=== PATIENT | female | born 1980 | race Caucasian/White ===

== ENCOUNTER 2019-05-07 20:59 | Emergency (ER) | payer OTHER ==
[2019-05-07 21:23] VITALS: BP 117/72
--- NOTE | 2019-05-07 21:37 | UC ---
Throat Pain/Nasal Alonso HPI - HPI Summary HPI Summary: 38-year-old woman comes in with a chief complaint of sore throat and headache for 2 days. Both her and her [id number] daughter have similar symptoms. Patient has not had any fevers. She is 24 weeks and has been taking acetaminophen which does help with symptoms some. She just found out that several acquaintances have been diagnosed with strep throat and she is concerned about the possibility. - History of Current Complaint Chief Complaint: UCRespiratory Stated Complaint: SORE THROAT Time Seen by Provider: 05/07/19 21:02 Hx Last Menstrual Period: 24 WEEKS Pain Intensity: 3 - Allergies/Home Medications Allergies/Adverse Reactions: Allergies Allergy/AdvReac Type Severity Reaction Status Date / Time erythromycin base Allergy Nausea And Verified 05/07/19 21:20 Vomiting morphine Allergy Itching Verified 05/07/19 21:20 Sulfa (Sulfonamide Allergy Itching Verified 05/07/19 21:20 Antibiotics) Home Medications: Home Medications Acetaminophen [Tylenol Extra Strength] 500 mg PO Q12HR PRN 05/07/19 [History Confirmed 05/07/19] Vitamin TAB* 1 tab PO DAILY 05/07/19 [History Confirmed 05/07/19] PMH/Surg Hx/FS Hx/Imm Hx Previously Healthy: Yes - Surgical History Surgical History: Yes Surgery Procedure, Year, and Place: X 2. APPY - Family History Known Family History: Positive: Non-Contributory - Social History Alcohol Use: None Substance Use Type: None Smoking Status (MU): Never Smoked Tobacco Review of Systems All Other Systems Reviewed And Are Negative: Yes Constitutional: Positive: Other - SEE HPI Skin: Positive: Negative Eyes: Positive: Negative ENT: Positive: Sore Throat Respiratory: Positive: Negative Cardiovascular: Positive: Negative Gastrointestinal: Positive: Negative Motor: Positive: Negative Neurovascular: Positive: Negative Musculoskeletal: Positive: Negative Neurological: Positive: Headache Psychological: Positive: Negative Is Patient Immunocompromised?: No Physical Exam Triage Information Reviewed: Yes Appearance: Well-Appearing, No Pain Distress, Well-Nourished Vital Signs: Initial Vital Signs Temp 98.6 F 05/07/19 21:21 Pulse 97 05/07/19 21:21 Resp 18 05/07/19 21:21 BP 117/72 05/07/19 21:21 Pulse Ox 96 05/07/19 21:21 Vital Signs Reviewed: Yes Eye Exam: Normal Eyes: Positive: Conjunctiva Clear ENT: Positive: Pharyngeal erythema, TMs normal Neck: Positive: Supple Respiratory: Positive: Lungs clear, Normal breath sounds, No respiratory distress Cardiovascular: Positive: RRR Abdomen Description: Positive: Other: - GRAVID Musculoskeletal: Positive: Strength Intact, ROM Intact Neurological: Positive: Alert, Muscle Tone Normal Psychological: Positive: Age Appropriate Behavior Skin Exam: Normal Throat Pain/Nasal Course/Dx - Course Course Of Treatment: Her rapid strep was negative. I discussed this with the patient. Plan right now is symptomatic treatment reevaluation if not improved worse. - Differential Dx/Diagnosis Provider Diagnosis: Pharyngitis, Upper respiratory infection Discharge ED - Sign-Out/Discharge Documenting (check all that apply): Patient Departure All imaging exams completed and their final reports reviewed: No Studies - Discharge Plan Condition: Stable Disposition: HOME Patient Education Materials: Pharyngitis (ED), Upper Respiratory Infection (ED) Referrals: [facility] [Outside] Additional Instructions: FOLLOW UP WITH YOUR DOCTOR IF NOT COMPLETELY IMPROVED. GET RECHECKED SOONER IF YOUR CONDITION WORSENS OR ANY QUESTIONS OR CONCERNS. - Billing Disposition and Condition Condition: STABLE Disposition: Home
== END 2019-05-07 21:45 | disposition home or self-care (01) ==
LOC: UCEAST 20:59
DX: J02.9 Acute pharyngitis, unspecified (principal); J06.9 Acute upper respiratory infection, unspecified; Z88.5 Allergy status to narcotic agent; Z88.2 Allergy status to sulfonamides
CPT/HCPCS: 87651; 99211; G0463

== ENCOUNTER 2019-08-18 06:06 | Inpatient (IN) | payer OTHER ==
[~2019-08-18 06:06] MED LIST: Buffered Lidocaine 1% SYRIN* 1 ML/SYRINGE INTRADERM ONE; Famotidine IV* 10 MG/ML 2 ML (20 mg) IV ONE; Lactated Ringers 1000 ML Bag* 1,000 ML IV SCH; Scopolamine 1.5 mg* PATCH TRANSDERM ONE
--- OUTSIDE RECORDS SUMMARY | 2019-08-18 06:10 | XMS REPORT | Continuity of Care Document ---
:1980 External Reference #:[id number] Author Name Yecenia Hobbs MD Address [address] [place] [address] Problems Description No Information Available Social History Type Date Description Comments Sex Unknown Tobacco Use Start: Unknown Never Smoked Cigarettes ETOH Use Denies alcohol use Recreational Drug Use Denies Drug Use Tobacco Use Start: Unknown Patient has never smoked Smoking Status Reviewed: 07/28/19 Patient has never smoked Exercise Type/Frequency Exercises regularly Seat Belt/Car Seat Always uses seat belt Allergies, Adverse Reactions, Alerts Active Allergies Reaction Severity Comments Date Erythromycin Vomiting 04/17/2019 Sulfa Hives 04/17/2019 Morphine Hives 04/17/2019 Medications Active Medications SIG Qnty Indications Ordering Provider Date Dha 1 by mouth every Unknown 200mg Capsules day, ok to use 200-400mg dha Medications Administered in Office Medication SIG Qnty Indications Ordering Provider Date PT SCRN Tbco Id as Non User Yecenia Hbobs MD 07/28/2019 Injection Injection Rho (D) Immune Globulin, Yecenia Hobbs MD 05/18/2019 Human, One Dose Package Injection Immunizations CPT Code Status Date Vaccine Lot # [id number] Given 06/09/2019 Tetnus, Diptheria Toxoids And Acellular Pertussis, 745N2 PT > 7Yrs Old [address]78 Given 05/18/2019 Influenza Vaccine Quadrivalent Preser/Antibiotic [id number] Free Im Use Vital Signs Date Vital Result Comment 07/28/2019 8:24am BP Systolic 118 mmHg BP Diastolic 70 mmHg Body Temperature 98.3 F Heart Rate 92 /min Respiratory Rate 16 /min Height 66 inches 5'6" Weight 175.00 lb BMI (Body Mass Index) 28.2 kg/m2 5 Parity 2 04/17/2019 1:06pm BP Systolic 104 mmHg BP Diastolic 64 mmHg Height 66 inches 5'6" Weight 166.00 lb BMI (Body Mass Index) 26.8 kg/m2 5 Parity 2 Results Test Acquired Facility Test Result H/L Range Note Date Laboratory test 07/28/2019 [facility] Genital For GRP <pending> [place] [address] B Strep Only [phone] Glucose 06/01/2019 [facility] GTT 3HR (SEE NOTE) 1 Tolerance 3HR [place] [address] Gestational Gestational [phone] Laboratory test 05/18/2019 [facility] Glucose 1 HR 166 mg/dL High 70-160 [place] [address] Post Prandial [phone] CBC With No 05/18/2019 [facility] White Blood 10.6 Normal 3.5- 10.8 [place] [address] Count 10^3/uL [phone] Red Blood Count 4.28 10^6/uL Normal 3.70-4.87 Hemoglobin 13.0 g/dL Normal 12.0-16.0 Hematocrit 38 % Normal 35-47 Mean Corpuscular Volume 89 fL Normal 80-97 Mean Corpuscular Hemoglobin 30 pg Normal 27-31 Mean Corpuscular HGB Conc 34 g/dL Normal 31-36 Red Cell Distribution Width 13 % Normal 10-15 Platelet Count 253 10^3/uL Normal 150-450 Mean Platelet Volume 9.7 fL Normal 7.4-10.4 Laboratory test finding 05/18/2019 [facility] AB Screen NEGATIVE [address] [place] [address] [phone] Rubella Screen Equivocal Immune 1 GLU Fast 87 Col: 06/01/19 0849 GLU 1HR 165 Col: 06/01/19 0949 GLU 2HR 135 Col: 06/01/19 1049 GLU 3HR 63 Col: 06/01/19 1149 GLU Interp Col: 06/01/19 0849 GTT normal ranges for obstetrics per the [employer] (ACOG).Based on 100 gm glucose load: Fasting <95 mg/dl 1hr <180 mg/dl 2hr <155 mg/dl 3hr <140 mg/dl 2 [id number] Procedures Date Code Description Status 07/14/2019 08078 Biophysical Profile Without Non Stress Test Completed 07/14/2019 77829 Echography Uterus Follow-Up Or Repeat Completed Medical Devices Description No Information Available Encounters Type Date Location Provider Dx Diagnosis Office Visit 07/28/2019 [facility] Yecenia Hobbs MD Z01.818 Encounter for other 8:00a preprocedural examination O34.211 Matern care for low transverse scar from prev del Assessments Date Code Description Provider 07/28/2019 Z01.818 Encounter for other preprocedural examination Yecenia Hobbs MD 07/28/2019 O34.211 Maternal care for low transverse scar from Yecenia Hobbs MD previous delivery 07/14/2019 O09.523 Supervision of elderly multigravida, third Yvon Cleary JR, DO trimester 07/14/2019 O34.211 Maternal care for low transverse scar from Yvon Cleary JR, DO previous delivery 07/14/2019 O09.523 Supervision of elderly multigravida, third Ultrasounds trimester 06/30/2019 O34.211 Maternal care for low transverse scar from Yvon Cleary JR, DO previous delivery 06/09/2019 Z23 Encounter for immunization Yecenia Hobbs MD 06/09/2019 O34.211 Maternal care for low transverse scar from Yecenia Hobbs MD previous delivery 06/09/2019 O09.523 Supervision of elderly multigravida, third Yecenia Hobbs MD trimester 06/01/2019 Z36.9 Encounter for screening, Hattie Thompson MD unspecified 06/01/2019 Z36.9 Encounter for screening, Laboratory unspecified 05/18/2019 Z36.9 Encounter for screening, Hattie Thompson MD unspecified 05/18/2019 Z36.9 Encounter for screening, Laboratory unspecified 05/18/2019 O34.211 Maternal care for low transverse scar from Yecenia Hobbs MD previous delivery 05/18/2019 O09.522 Supervision of elderly multigravida, second Yecenia Hobbs MD trimester 05/18/2019 Z23 Encounter for immunization Yecenia Hobbs MD 04/17/2019 Z34.82 Encounter for supervision of other normal Belia Morel CNM , second trimester Plan of Treatment Future Appointment(s):08/18/2019 7:45 am - Kandi Mace CNM at [facility] [place] 7:45 am - [place] [facility] [place] 1:30 pm - Yecenia Hobbs MD at [facility]08/25/2019 10:45 am - Bee Mike CNM at [facility]08/18/2019 7:45 am - Y[place]bs [place] [facility] [place] 8:20 am - Og Bowen M.D. at [facility]08/03/2019 3:00 pm - Hattie Thompson MD at [facility] Functional Status Description No Information Available Mental Status Description No Information Available Referrals Description No Information Available
[2019-08-18] MEDS ORDERED: ceFOXitin 2 GM IVPREMIX* 2 GM/50 ML BAG ONE (06:55)
[2019-08-18] MEDS ORDERED: Phenylephrine 10 MG/ML VIAL* 1 ML VIAL ONE (07:23)
[2019-08-18] MEDS ORDERED: EPHEDrine (Pressors)* 50 MG/ML VIAL ONE (07:26)
[2019-08-18] MEDS ORDERED: Ondansetron INJ* 2 MG/ML VIAL ONE (07:26)
[2019-08-18] MEDS ORDERED: PROCHLORPERAZINE INJ 5 MG/ML 2 ML VIAL ONE (07:26)
[2019-08-18] MEDS ORDERED: Dexamethasone IV* 4 MG/ML 1 ML (4 MG) ONE (07:26)
[2019-08-18] MEDS ORDERED: Ketorolac INJ* 30 MG/ML 1 ML VIAL ONE (07:26)
[2019-08-18] MEDS ORDERED: OXYTOCIN* 10 UNITS/ML 1 ML VIAL ONE (07:26)
[2019-08-18] MEDS ORDERED: KETAMINE HCL* 50 MG/ML 10 ML VIAL ONE (07:28)
[2019-08-18] MEDS ORDERED: fentaNYL* 50 MCG/ML 2 ML VIAL (100 MCG VIAL) ONE (07:28)
[2019-08-18] MEDS ORDERED: Morphine PF AMP (0.5MG/ML)* 5 MG/10 ML AMP ONE (07:28)
[2019-08-18] MEDS ORDERED: Midazolam* 1 MG/ML 5 ML VIAL (5 MG) ONE (07:28)
[2019-08-18] MEDS ORDERED: Naloxone* 0.4 MG/ML 1 ML VIAL IV PRN ×2 (08:31→08:35)
[2019-08-18] MEDS ORDERED: diPHENhydraMINE IV* 50 MG/ML 1 ml VIAL (BENADRYL) IV PRN (08:31)
[2019-08-18] MEDS ORDERED: Naloxone* 2 MG in NS 0.9% 250 ML* 250 ML IV PRN (08:31)
[2019-08-18] MEDS ORDERED: Ondansetron INJ* 2 MG/ML VIAL IV PRN (08:31)
[2019-08-18] MEDS ORDERED: DiMENhydriNATE IV* 50 MG/ML VIAL IV PUSH PRN (08:31)
[2019-08-18] MEDS ORDERED: Nalbuphine* 10 MG/ML 1 ML VIAL IV PRN (08:31)
[2019-08-18] MEDS ORDERED: PROCHLORPERAZINE INJ 5 MG/ML 2 ML VIAL IV PRN (08:31)
[2019-08-18] MEDS ORDERED: fentaNYL* 50 MCG/ML 2 ML VIAL (100 MCG VIAL) IV PRN (08:35)
[2019-08-18] MEDS ORDERED: RHO D Immune Globulin (HUMAN)* 300 MCG = 1,500 I.U. INJ IM ONE (10:20)
[2019-08-18] MEDS ORDERED: Witch Hazel PAD* JAR TOPICAL PRN (10:20)
[2019-08-18] MEDS ORDERED: Acetaminophen TAB* 325 MG PO PRN (10:20)
[2019-08-18] MEDS ORDERED: Lactated Ringers 1000 ML Bag* 1,000 ML IV SCH (11:00)
[2019-08-18] MEDS: oxyCODONE/Acetamin 5/325 MG* TAB PO PRN ×3 (11:17→20:02)
[2019-08-18] MEDS: Simethicone TAB* 80 MG TAB.CHEW PO SCH ×3 (12:42→20:02)
[2019-08-18] MEDS ORDERED: Ibuprofen TAB* 600 MG PO SCH (14:00)
[2019-08-18 14:27] LABS: Urine Benzodiazepine Screen None Detected (None Detect); Urine Opiates Screen None Detected (None Detect)
[2019-08-18] MEDS: Docusate CAP* 100 MG PO SCH ×2 (15:02→20:01)
[2019-08-18] MEDS: Ketorolac INJ* 30 MG/ML 1 ML VIAL IV PRN ×2 (15:03→20:44)
[2019-08-19] MEDS ORDERED: oxyCODONE/Acetamin 5/325 MG* TAB PO PRN (00:11)
--- NOTE | 2019-08-19 01:32 | OP ---
DATE OF OPERATION: 08/18/19 - ROOM #117 DATE OF : 78 SURGEON: Yecenia Hobbs MD INFORMATION DIRECTOR: Dr. Rubin. ANESTHESIOLOGIST: Dr. Alexander. ANESTHESIA: Spinal. PRE-OP DIAGNOSES: 39 weeks' gestation with history of 2 prior C-sections and satisfied parity. POST-OP DIAGNOSES: 39 weeks' gestation with history of 2 prior C-sections and satisfied parity. OPERATIVE PROCEDURE: Repeat low transverse section with vacuum assist and bilateral tubal ligation. INDICATIONS: This patient is a 39-year-old, 5, para 2, who presented today for her scheduled repeat section. The patient also strongly desired to have permanent sterilization and she had been extensively counseled previously. Consent was signed. ESTIMATED BLOOD LOSS: 900 cc. URINE OUTPUT: 150 cc. IV FLUIDS: 2400 cc lactated Ringer's. MATERIALS TO LAB: Cord blood. FINDINGS: Normal-appearing uterus, fallopian tubes, and ovaries. Delivery is productive of a 6-pound 10-ounce female infant with Apgars of 8 and 9. Time of delivery was 0845. COMPLICATIONS: None. DESCRIPTION OF PROCEDURE: The risks, benefits, and alternatives were described to the patient, and informed consent was obtained. The patient was taken to the operating room with IV running, where spinal anesthesia was induced and found to be adequate. The patient was prepped and draped in normal sterile fashion in the dorsal supine position with a leftward tilt. A Pfannenstiel skin incision was made with a scalpel through the patient's previous incision. This was carried down to the underlying fascia using the scalpel. The fascia was scored in the midline, and the incision was extended using Zaldivar scissors. The fascia was dissected off the underlying rectus muscles using blunt and sharp dissection. The rectus muscles were in the midline using dissection with a Radha clamp. The peritoneum was then entered bluntly. A bladder blade was placed. A bladder flap was created sharply using Metzenbaum scissors. A low transverse uterine incision was then made with the scalpel. This was carried down to the amniotic membranes. The membranes were then ruptured, productive of clear fluid. The uterine incision was extended using blunt traction. The head was elevated to the level of the incision, but with fundal pressure, the head could not be angled out of the incision. A Kiwi vacuum was placed on the scalp. At that time, with fundal pressure and gentle traction, the head delivered without difficulty. The shoulders then were also both delivered and the body followed. The infant had excellent tone and cried immediately on delivery. The cord was doubly clamped and cut. The was then handed to the awaiting crusher foreman. Cord blood was collected. The placenta was delivered with manual extraction. The uterus was then exteriorized and cleared of all clots and debris. The uterine incision was then reapproximated using 0 Vicryl in a running-locked fashion. Additional djorun-jq-rvawb stitches of 0 Vicryl were also placed for good hemostasis. The right fallopian tube was grasped with a Edelmira clamp. A long Radha clamp was used to clamp off the distal half of the tube, including the fimbriated end. 3-0 Vicryl was used to tie off the tube segment. A 3-0 Vicryl stitch was also placed. The tube was then excised with good hemostasis. The same was then performed on the left side. The posterior cul-de-sac was irrigated with saline. The uterus was then returned to the abdomen. The incision was reinspected and still noted to be hemostatic. The peritoneum was closed with 3-0 Vicryl in a running fashion. The fascia was closed with 0 Vicryl in a running fashion. The subcutaneous tissues were copiously irrigated and made hemostatic using the Bovie. The subcutaneous tissues were then reapproximated using 3-0 Vicryl in interrupted sutures. The skin was then closed with 4-0 Monocryl in a subcuticular stitch. Mastisol and steristrips were then applied. A sterile bandage was then placed over the incision. The patient tolerated the procedure well. Sponge, lap, and needle counts were correct x2. [id number]/[facility] #: [id number] [facility]
[2019-08-19] MEDS ORDERED: diPHENhydraMINE IV* 50 MG/ML 1 ml VIAL (BENADRYL) ONE (02:32)
[2019-08-19] MEDS ORDERED: diPHENhydraMINE IV* 50 MG/ML 1 ml VIAL (BENADRYL) IV PRN (02:45)
[2019-08-19] MEDS: Ketorolac INJ* 30 MG/ML 1 ML VIAL IV PRN ×2 (02:54→08:44)
[2019-08-19 05:41] LABS: ABS Basophils 0.1 10^3/ul (0-0.2); ABS Eosinophils 0.1 10^3/ul (0-0.6); ABS Lymphocytes 2.2 10^3/ul (1.0-4.8); ABS Monocytes 1.5 10^3/ul (0-0.8); ABS Neutrophils 15.9 10^3/ul (1.5-7.7); Eosinophil % 0.4 %; Hematocrit 33 % (35-47); Lymphocyte % 11.1 %; Mean Corpuscular HGB Conc 34 g/dL (31-36); Mean Corpuscular Hemoglobin 29 pg (27-31); Mean Corpuscular Volume 86 fL (80-97); Mean Platelet Volume 9.1 fL (7.4-10.4); Platelet Count 224 10^3/uL (150-450); Red Blood Count 3.81 10^6 /uL (3.70-4.87); Red Cell Distribution Width 13 % (10-15); White Blood Count 19.8 10^3/uL (3.5-10.8)
[2019-08-19] MEDS: Simethicone TAB* 80 MG TAB.CHEW PO SCH ×4 (08:44→21:00)
[2019-08-19] MEDS: Docusate CAP* 100 MG PO SCH ×3 (08:44→21:00)
[2019-08-19] MEDS ORDERED: Ferrous Gluconate TAB* 324 MG TAB PO SCH (09:00)
[2019-08-19] MEDS ORDERED: Varicella Virus Vaccine Live* 0.5 ML VIAL SUBCUT ONE (09:00)
[2019-08-19] MEDS ORDERED: Measles, Mumps,Rubella VACC* 0.5 ML/VIAL SUBCUT ONE (09:00)
[2019-08-19] MEDS ORDERED: diPHENhydraMINE LIQ* 12.5 MG/5 ML UDC PO PRN (09:36)
[2019-08-19] MEDS: oxyCODONE/Acetamin 5/325 MG* TAB PO PRN ×2 (13:02→21:06)
[2019-08-19] MEDS ORDERED: Ibuprofen TAB* 600 MG ONE (15:18)
[2019-08-19] MEDS: Ibuprofen TAB* 600 MG PO PRN (15:20)
[2019-08-19] MEDS: Butalb/Acetamin/Caff TAB* 1 TAB PO PRN (21:59)
[2019-08-20] MEDS: oxyCODONE/Acetamin 5/325 MG* TAB PO PRN ×4 (01:04→13:39)
[2019-08-20] MEDS: Ibuprofen TAB* 600 MG PO PRN ×4 (03:38→21:58)
[2019-08-20] MEDS: Butalb/Acetamin/Caff TAB* 1 TAB PO PRN ×3 (03:38→15:23)
[2019-08-20] MEDS ORDERED: Varicella Virus Vaccine Live* 0.5 ML VIAL SUBCUT ONE (09:00)
[2019-08-20] MEDS ORDERED: Measles, Mumps,Rubella VACC* 0.5 ML/VIAL SUBCUT ONE (09:00)
[2019-08-20] MEDS: Docusate CAP* 100 MG PO SCH ×3 (09:29→20:14)
[2019-08-20] MEDS: Simethicone TAB* 80 MG TAB.CHEW PO SCH ×4 (09:30→21:35)
--- NOTE | 2019-08-20 11:15 | CONSULT ---
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 Patient had a repeat Section and BTL on 08/18/2019 under spinal anesthesia. She felt fine on the morning of 08/19/2019 but then in the afternoon , when walking, she experienced sudden onset of a pressure-like headache, which was relieved (although incompletely) by getting back in bed. This headache has continued through on to today and still remains positional, getting worse when she sits or stands. She rates it at 9/10 and it is fairly incapacitating at this point, interfering with her ability to care for her , despite conservative treatment with hydration, analgesics and caffeine. Past Medical History is essentially unremarkable. She is allergic to Erythromycin and Sulfa. Only medications at this point are analgesics. On Physical Exam, she is alert, cooperative and in pain. Skin is warm and dry. Spine exam is WNL with palpable landmarks. Puncture site is evident at L3-4 level. A/P: The story sounds convincingly like a typical Post Dural Puncture Headache. Conservative therapy has not helped much. Procedure and expected risks and discomforts for Epidural Blood Patch were expained to patient. She has asked appropriate questions, understands, and wishes to proceed. PROCEDURE: Chloraprep to Left antecubital area and Hep-sara started using sterile precautions. Sitting position, Chloraprep to back, 1% Lidocaine skin wheal. 17G Tuohy needle placed at L3-4 at site of old puncture, ARLENE to saline acheived. 30 ml of blood withdrawn from Hep-sara using sterile precautions and injected slowly into epidural space. Patient experienced pressure in her head during the second half of injection, which then subsided after injection was complete. She never experienced any back pain or leg pain. Patient then rested supine for 20 minutes. On questioning after this time she says that her headache is gone. She prefers to continue to rest and not try to get up at this time.
[2019-08-20] MEDS ORDERED: oxyCODONE/Acetamin 5/325 MG* TAB PO PRN (15:10)
[2019-08-20] MEDS ORDERED: oxyCODONE TAB* 5 MG TAB PO PRN (15:11)
[2019-08-20] MEDS ORDERED: Metoclopramide TAB* 10 MG PO ONE (18:25)
[2019-08-20] MEDS ORDERED: Magnesium Oxide TAB* 400 MG PO ONE (18:25)
[2019-08-20] MEDS ORDERED: diPHENhydraMINE LIQ* 12.5 MG/5 ML UDC PO ONE (18:25)
--- NOTE | 2019-08-20 22:01 | CONS ---
NEUROLOGY CONSULTATION NOTE: DATE OF CONSULT: 08/20/19 PRIMARY PROVIDER: Dr. Cleary. REASON FOR CONSULT: Headaches. CHIEF COMPLAINT: "Headaches." HISTORY OF PRESENT ILLNESS: Ms. Shelbie Pires is a 39-year-old right-handed female, who works at [employer], who is status post third on 08/18/19. The patient did well the first 24 hours following the procedure. She did receive spinal anesthesia. The patient developed symptoms of headaches on 08/19. The pain was described as intractable, positional related, holocephalic, dull and unique pain. She developed the pain around 7-8 p.m. The pain was graded at eventually 9/10 in severity but decreases to 4/10 when lying flat. She underwent a blood patch on 08/20/19 at 10:20 a.m. The pain completely subsided. The patient was feeling well for approximately 1-1/2 hours. However , gradually she started developing recurrence of the holocephalic pain at 1400 p.m. today. She had 9/10 headache. She has been taking a total of 7 tablets of oxycodone/acetaminophen 5/325 mg, acetaminophen, oxycodone for which she took 5 mg tablet today, ibuprofen for which she has been taking total of four 600 mg tablets, and Fioricet a total of 4 tablets within the past 24 hours. The patient's current headache is mostly in the frontal region. She describes the pain as squeezing like pain. It is 4/10 in severity. When she got up, the pain increased to 6/10 in severity. She likes to stay in the dark, although she denied any photo or phonophobia. She denied any nausea. The pain increases with Valsalva maneuver such as coughing, sneezing, straining. She feels like her legs are swollen after the procedure. Her blood pressure has been within normal range. She does not have any IV access. PAST MEDICAL HISTORY: The patient does have history of migraine headaches; however, she required preventive therapy and Botox treatment for chronic intractable migraines. She also had a hospitalization in the past in [place] for a problem that she had in the inner ear. During her third trimester of this recent , she developed increased episodes of dizziness and wobbling. She also has history of appendectomy and 2 prior C-sections. She drinks approximately 2 to 3 cups of coffee a day. HOME MEDICATIONS: She took were vitamins. FAMILY HISTORY: Both parents are due to alcoholic liver cirrhosis. She was raised by her grandparents. Her maternal grandfather had suffered a stroke. SOCIAL HISTORY: She works at [employer]. She denied any tobacco use. She drinks alcohol occasionally outside her . She denied any drug use. REVIEW OF SYSTEMS: A 14-point review of systems was obtained and otherwise negative except for what is mentioned in the HPI. PHYSICAL EXAM: Vitals: Temperature of 98.7, pulse rate of 102, respiratory rate of 18, blood pressure of 115/64. General: A well-nourished, well- developed female, who is day #2. She is in no acute distress. Head : Atraumatic, normocephalic. She has slight tenderness over the occipital trunk on the right more than the left. Neck is supple but she is holding her neck tightly because she does not want to make any spontaneous movements. Eyes : Conjunctivae/corneas are clear. Funduscopic examination showed bilateral sharp disc margins. Cardiovascular: Regular rate and rhythm. Normal S1, S2. Chest: Clear to auscultation bilaterally with no wheezing or rhonchi. Neck is again supple. Extremities: Normal range of motion with no cyanosis or edema. Skin: No skin lesions or laceration. Psych: Broad affect with normal mood. No evidence of depression or suicide ideation. Neurological Examination: Mental status: Awake, alert, oriented to person, place, time, and general circumstances. Speech and language including repetition and comprehension were assessed and found to be normal. Cranial Nerves: Pupils are equal, round, and reactive to light. Extraocular muscles are intact. There is no facial asymmetry. The tongue is symmetric, in midline with no atrophy or fasciculation. Motor Examination: 5/5 strength in the upper and lower extremities bilaterally. Normal tone throughout. Sensation is intact to light touch and pinprick throughout. Reflexes 2+ in the upper and lower extremities including the biceps, brachioradialis, triceps, and knees bilaterally. Coordination: Normal ihspyk-np-wlwl and ulln-zq-mijm testing. Gait: Cautious gait. No ataxia. The patient has no meningeal signs on examination with negative Brudzinski's and Kernig's. DIAGNOSTIC STUDIES/LAB DATA: No imaging studies were obtained. Her WBCs elevated at 19,000. ASSESSMENT: Ms. Shelbie Pires is a 39-year-old right-handed female who is status post section on 08/18/19 for which she has done fairly well except developed postural-related headaches on 08/19/19. The patient responded to the blood patch for only 1-1/2 to 2 hours. She continues to have predominantly positional-related headaches, but also with a component of possible tension- related headaches. She has no focal neurological deficits on examination to suspect other etiologies such as cerebral venous thrombosis, spontaneous intracranial hypotension, meningitis, or subarachnoid hemorrhage. She has no fevers and the leukocytosis may be related to reactivity after surgery. Her symptom onset was gradual and was not sudden in nature. Another etiology to her current symptoms is most likely analgesic-rebound headache given that she finds significant relief with narcotic therapy and NSAIDs and then after few hours has recurrence in the pain. RECOMMENDATIONS: I recommend starting her on single dose of magnesium oxide 400 mg x1, prednisone 20 mg x1, Reglan 10 mg x1, and Benadryl 25 mg x1. The patient does not have IV access and therefore, we opted to not place an IV access at this time and treat her with oral medications. The patient is also complaining of constipation and I defer further treatment to the primary team. She may benefit from Maalox x1 dose. Try to minimize all narcotic therapies including Fioricet as well given the increased or high in risk for analgesic- rebound effects. Encourage ambulation. If she has any worsening of headaches, then proceed with a CT head without contrast to evaluate for any intracranial disease. Close monitoring with neuro checks every 4 hours. I will follow up with the patient the first thing in the morning. [id number]/[facility] #: [id number] [facility]
[2019-08-21] MEDS: Ibuprofen TAB* 600 MG PO PRN ×2 (04:03→10:30)
[2019-08-21] MEDS ORDERED: Scopolamine PATCH Remove* 1 NOTE MISC PATCH OFF ONE (06:00)
[2019-08-21] MEDS: Simethicone TAB* 80 MG TAB.CHEW PO SCH (07:29)
[2019-08-21] MEDS: Docusate CAP* 100 MG PO SCH (07:29)
[2019-08-21 07:47] VITALS: BP 126/74
--- NOTE | 2019-08-21 11:52 | PN ---
Progress Note - Progress Note Date of Service: 08/21/19 Note: I saw the patient this AM. I had attempted to see her last PM but she was in the middle of her neurology consult. Today the patient reports that her TORRES is better, she has the lights on and has been ambulating, she feels she is ready to go home. Please refer to the neurology consult for further details on the TORRES. No need for further anesthesia F/U.
--- NOTE | 2019-08-21 14:40 | PN ---
Subjective Date of Service: 08/21/19 Length of Stay: 3 Days Neurology is following for headaches. Interval History: She feels better today. She has less pain and has been able to ambulate, shower , and feels slowly back to her normal self. She had a mild headache and required percocet this morning. WBC: 19.8. She has no fevers. Review of Systems: Denied CP, SOB, or palpitations. Objective Active Medications: Acetaminophen/Butalbital/Caffeine (Fioricet Tab*) 1 tab PO Q6H PRN PRN Reason: SPINAL HEADACHE Last Admin: 08/20/19 15:23 Dose: 1 tab Diphenhydramine HCl (Benadryl Liq*) 12.5 mg PO Q4H PRN PRN Reason: ITCHING Docusate Sodium (Colace Cap*) 100 mg PO TID [facility] Last Admin: 08/21/19 07:29 Dose: 100 mg Lactated Ringer's (Lactated Ringers 1000 Ml Bag*) 1,000 mls @ 0 mls/hr IV KVO [facility] Ibuprofen (Motrin Tab*) 600 mg PO Q6H PRN PRN Reason: PAIN - MILD Last Admin: 08/21/19 10:30 Dose: 600 mg Oxycodone HCl (Roxycodone Tab*) 5 mg PO Q4H PRN PRN Reason: PAIN - SEVERE Last Admin: 08/20/19 15:25 Dose: 5 mg Oxycodone/Acetaminophen (Percocet 5/325 Tab*) 2 tab PO Q6H PRN PRN Reason: PAIN - SEVERE Last Admin: 08/21/19 07:28 Dose: 2 tab Prednisone (Deltasone 20 Mg Tab) 20 mg PO DAILY [facility] Stop: 08/23/19 19:29 Last Admin: 08/21/19 12:10 Dose: 20 mg Simethicone (Mylicon Tab*) 80 mg PO [facility] Last Admin: 08/21/19 07:29 Dose: 80 mg Witch Josette (Tucks*) 1 pad TOPICAL .PRN PRN PRN Reason: DISCOMFORT Vital Signs 08/20/19 08/20/19 08/20/19 15:23 15:25 16:00 Temperature 98.7 F Pulse Rate 102 Respiratory 18 18 18 Rate Blood Pressure 115/64 (mmHg) 08/20/19 08/20/19 08/20/19 18:31 18:34 18:35 Temperature Pulse Rate Respiratory 18 18 18 Rate Blood Pressure (mmHg) 08/20/19 08/20/19 08/20/19 19:23 19:31 21:36 Temperature 98 F Pulse Rate 68 Respiratory 18 12 18 Rate Blood Pressure 118/65 (mmHg) 08/21/19 08/21/19 07:28 07:46 Temperature 99.0 F Pulse Rate 98 Respiratory 18 16 Rate Blood Pressure 126/74 (mmHg) Intake and Output Last 24 Hours 08/19/19 08/20/19 08/21/19 08/22/19 06:59 06:59 06:59 06:59 Output Total 2350 1300 Balance -2350 -1300 Output: Urine 350 Harvey 2000 1300 Oxygen Devices in Use Now: None Neurology Exam: General: Well nourished, well developed, and in no acute distress HEENT: Normocephelic/atraumatic, sclera anicteric, mucous membranes moist Extremities: No clubbing, cyanosis, or edema Neurological Findings: Awake, alert, and oriented to person, place, and time. Speech: fluent without dysarthria, repetition intact Cranial Nerve: PERRL, EOM intact, VFF, no nystagmus, face symmetric bilaterally , facial sensation intact Motor: s/s throughout, proximal and distal extremities x4 tone/bulk normal Finger to nose, rapid alternating movements intact without tremor, no dysdiadochokinesia Gait: intact with good arm swing and stride Result Diagrams: 08/19/19 05:35 Assessment/Plan Shelbie Pires is a 39-year-old right-handed female who has history of migraine headache who developed post spinal related headache. She responded partially to a blood patch and is doing fairly well today after prednisone, benadryl, magnesium, and Reglan therapy. I recommend weaning her off narcotics and Fioricet to prevent withdrawal headaches. Continue Prednisone 20 mg for a total of 2 doses. Follow-up with Neurology in 6 weeks if the headache persist. David Mcnair MD
== END 2019-08-21 13:30 | disposition home or self-care (01) | DRG 784 ==
LOC: MCHOB 06:06
PROVIDERS: ADMIT Obstetrics & Gynecology; ATTEND Obstetrics & Gynecology
PROC: 0UB70ZZ Excision of Bilateral Fallopian Tubes, Open Approach (ICD-10-PCS; 2019-08-18)
PROC: 4A1HXCZ Monitoring of Products of Conception, Cardiac Rate, External Approach (ICD-10-PCS; 2019-08-18)
PROC: 10D00Z1 Extraction of Products of Conception, Low, Open Approach (ICD-10-PCS; principal; 2019-08-18 07:45)
DX: O34.211 Maternal care for low transverse scar from previous cesarean delivery (principal); O99.354 Diseases of the nervous system complicating childbirth; G43.909 Migraine, unspecified, not intractable, without status migrainosus; O74.5 Spinal and epidural anesthesia-induced headache during labor and delivery; Z3A.39 39 weeks gestation of pregnancy; Z37.0 Single live birth; Z88.5 Allergy status to narcotic agent; Z88.2 Allergy status to sulfonamides; Z88.1 Allergy status to other antibiotic agents; Z28.21 Immunization not carried out because of patient refusal; Z30.2 Encounter for sterilization
CPT/HCPCS: 36415; 80307; 85025; 88302; 90707; A9270-GY; J0694; J0780; J1100; J1200; J1240; J1885; J2250; J2405; J2590; J3010; J7512